=== PATIENT | male | born 1975 | race Caucasian/White ===

== ENCOUNTER → 2017-03-27 | Emergency (ER) | payer MEDICAID ==
[2017-03-27 06:53] LABS: BASOPHILS 0.3 % (0-2); EOSINOPHILS 3.1 % (0-7); HEMATOCRIT 48.6 % (42.0-54.0); HEMOGLOBIN 16.9 g/dL (13.5-17.5); IMMATURE GRANULOCYTES 0.5 % (0-5); LYMPHOCYTES 19.7 % (15-50); MCH 33.3 pg (26.0-34.0); MCHC 34.8 g/dL (31.0-37.0); MCV 95.7 fL (80.0-100.0); MEAN PLATELET VOLUME 9.9 fL (7.4-10.4); MONOCYTES 6.6 % (2-11); NEUTROPHILS 69.8 % (40-80); PLATELET COUNT 200 10x3/uL (130-400); RBC 5.08 10x6/uL (4.20-6.10); RDW 12.1 % (11.5-14.5); WBC 8.6 10x3/uL (4.8-10.8)
[2017-03-27 07:05] LABS: ALBUMIN 3.8 g/dL (3.4-5.0); ALKALINE PHOSPHATASE 78 U/L (46-116); ALT (SGPT) 70 U/L (10-68); BILIRUBIN - TOTAL 0.52 mg/dL (0.2-1.3); CALC OSMOLALITY 270 mosm/kg (275-300); CALCIUM 8.8 mg/dL (8.5-10.1); CARBON DIOXIDE 27.9 mmol/L (21.0-32.0); CHLORIDE - SERUM 100 mmol/L (98-107); CREATININE - SERUM 0.8 mg/dL (0.6-1.3); GLUCOSE 94 mg/dL (74-106); LIPASE 99 U/L (73-393); PHENYTOIN (DILANTIN) 1.6 ug/mL (10.0-20.0); PROTEIN - SERUM 8.2 g/dL (6.4-8.2); SODIUM 136 mmol/L (136-145); UREA NITROGEN 9 mg/dL (7-18); eGFR NON AFRICAN AMERICAN > 90 mL/min (90-120)
[2017-03-27 07:29] LABS: APPEARANCE HAZY (CLEAR); BILIRUBIN NEGATIVE (NEGATIVE); COLOR YELLOW (YELLOW); GLUCOSE NEGATIVE (NEGATIVE); KETONE NEGATIVE (NEGATIVE); LEUKOCYTE ESTERASE NEGATIVE (NEGATIVE); NITRITE NEGATIVE (NEGATIVE); PROTEIN NEGATIVE (NEGATIVE); UROBILINOGEN NORMAL (NORMAL)
== END | disposition home or self-care (01) ==
LOC: D.ER 05:55
PROVIDERS: Emergency Medicine
DX: R10.84 Generalized abdominal pain (principal); R11.2 Nausea with vomiting, unspecified

== ENCOUNTER 2017-06-22 09:45 | Emergency (ER) | payer MEDICAID | END 2017-06-22 10:34 | disposition home or self-care (01) | LOC: D.ER 09:45 | DX: H00.031 Abscess of right upper eyelid (principal); S00.261A Insect bite (nonvenomous) of right eyelid and periocular area, initial encounter; W57.XXXA Bitten or stung by nonvenomous insect and other nonvenomous arthropods, initial encounter; Y93.89 Activity, other specified; Y92.029 Unspecified place in mobile home as the place of occurrence of the external cause; I10 Essential (primary) hypertension; G40.909 Epilepsy, unspecified, not intractable, without status epilepticus ==

== ENCOUNTER 2017-12-05 05:45 | Day surgery (SDC) | payer MEDICAID ==
[2017-12-04 09:48] LABS: HEMOGLOBIN 15.2 g/dL (13.5-17.5); MCHC 35.3 g/dL (31.0-37.0); MCV 93.3 fL (80.0-100.0); MEAN PLATELET VOLUME 9.2 fL (7.4-10.4); RBC 4.61 10x6/uL (4.20-6.10); RDW 11.8 % (11.5-14.5); WBC 4.3 10x3/uL (4.8-10.8)
[~2017-12-05] VITALS: Ht 185.4 cm; Wt 79.4 kg
[~2017-12-05 05:45] MED LIST: DILANTIN100 MG PO; PRINIVIL20 MG PO
[2017-12-05 06:46] VITALS: BP 133/87; Ht 185.4 cm; Wt 79.4 kg
[2017-12-05] MEDS ORDERED: NORCO 7.5/325 T1 TA1 PO (09:09)
[2017-12-05] MEDS ORDERED: FLOMAX0.4 MG PO (09:10)
[2017-12-05] MEDS ORDERED: LASIX20 MG PO (09:10)
== END 2017-12-05 10:40 | disposition home or self-care (01) ==
LOC: D.OPS 05:45 → D.PAN 09:15 → D.OPS 09:15 → D.PAN 12:00
PROVIDERS: Anesthesiology
DX: K40.90 Unilateral inguinal hernia, without obstruction or gangrene, not specified as recurrent (principal); Z01.812 Encounter for preprocedural laboratory examination

== ENCOUNTER 2019-04-28 09:33 | Emergency (ER) | payer MEDICAID ==
[~2019-04-28] VITALS: Ht 185.4 cm; Wt 65.9 kg
[~2019-04-28 09:33] MED LIST changes: +FLOMAX0.4 MG PO; +LASIX20 MG PO; +NORCO 7.5/325 T1 TA1 PO
[2019-04-28 09:40] VITALS: Ht 185.4 cm; Wt 65.9 kg
[2019-04-28] MEDS ORDERED: PREDNISONE20 MG PO (12:47)
[2019-04-28 13:38] VITALS: BP 160/107
== END 2019-04-28 13:38 | disposition home or self-care (01) ==
LOC: D.ER 09:33
DX: T63.461A Toxic effect of venom of wasps, accidental (unintentional), initial encounter (principal); Y92.89 Other specified places as the place of occurrence of the external cause